=== PATIENT | male | born 1985 | race Caucasian/White ===

== ENCOUNTER 2019-05-31 16:23 | Emergency (ER) | payer SELFPAY ==
[2019-05-31] MEDS ORDERED: traMADol HCL 50 MG TABLET ONE (16:38)
[2019-05-31 16:39] VITALS: BP 155/98
[2019-05-31] MEDS ORDERED: traMADol HCL 50 MG TABLET PO ONE (16:41)
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
== END 2019-05-31 18:24 | disposition home or self-care (01) ==
LOC: ED 16:23
DX: S39.012A Strain of muscle, fascia and tendon of lower back, initial encounter (principal); V43.52XA Car driver injured in collision with other type car in traffic accident, initial encounter
CPT/HCPCS: 72100; 99283